=== PATIENT | male | born 1995 | race Caucasian/White ===

== ENCOUNTER 2017-10-25 21:05 | Emergency (ER) | payer MEDICAID ==
[~2017-10-25] VITALS: Ht 202167.2 cm; Wt 88.6 kg
[~2017-10-25 21:05] MED LIST: ARIP30TA7 PO; CYAN100T PO; HALO5TAB PO; OLAN10TA19 PO
[2017-10-25] MEDS ORDERED: OLAN10TA3 PO (22:44)
[2017-10-25] MEDS ORDERED: PENI500T2 PO (22:44)
[2017-10-25 23:30] LABS: URINE AMPHETAMINE SCREEN NEGATIVE (Neg); URINE BARBITUATE SCREEN NEGATIVE (Neg); URINE BENZODIAZEPINES SCREEN NEGATIVE (Neg); URINE CANNABINOID SCREEN NEGATIVE (Neg); URINE COCAINE SCREEN NEGATIVE (Neg); URINE METHADONE SCREEN NEGATIVE (Neg); URINE OPIATE SCREEN NEGATIVE (Neg); URINE PHENCYCLIDINE SCREEN NEGATIVE (Neg)
[2017-10-25 23:32] LABS: CLARITY,URINE CLEAR (Clear); COLOR,URINE YELLOW (Yellow); GLUCOSE, URINE NEGATIVE (Neg); KETONES,URINE NEGATIVE (Neg); LEUKOCYTE ESTERASE ,URINE NEGATIVE (Neg); NITRITES, URINE NEGATIVE (Neg); OCCULT BLOOD,URINE NEGATIVE (Neg); PH,URINE 5.5 (4.8-8.0); PROTEIN,URINE NEGATIVE (Neg); UROBILINOGEN,URINE 0.2 E.U/dL (0.2-1.0)
[2017-10-25 23:36] LABS: BASOPHILS % (AUTO) 0.2 % (0-1); EOSINOPHILS # (AUTO) 0.2 X10'3 (0-0.9); EOSINOPHILS % (AUTO) 1.7 % (0-6); HEMATOCRIT 37.2 % (42.0-52.0); HEMOGLOBIN 12.8 g/dl (14.0-17.9); LYMPHOCYTES # (AUTO) 1.9 X10'3 (1.1-4.8); LYMPHOCYTES % (AUTO) 18.4 % (21-51); MEAN CORPUSCULAR HEMOGLOBIN 30.2 PG (27.0-31.0); MEAN CORPUSCULAR HGB CONC 34.4 % (33.0-36.5); MEAN CORPUSCULAR VOLUME 87.7 FL (78-98); MEAN PLATELET VOLUME 7.8 FL (7.4-10.4); MONOCYTES # (AUTO) 0.5 X10'3 (0-0.9); MONOCYTES % (AUTO) 4.8 % (2-12); NEUTROPHILS # (AUTO) 7.9 X10'3 (1.8-7.7); NEUTROPHILS % (AUTO) 74.9 % (42-75); PLATELET COUNT 238 X10'3 (140-440); RED BLOOD COUNT 4.24 X10'6 (4.70-6.10); RED CELL DISTRIBUTION WIDTH 14.9 % (11.5-14.5); WHITE BLOOD COUNT 10.5 X10'3 (4.5-11.0)
[2017-10-25 23:37] LABS: UA COLLECTION TYPE VOIDED
[2017-10-26] LABS: ALANINE AMINOTRANSFERASE 38 U/L (12-78); ALBUMIN/GLOBULIN RATIO 1.3 (1.1-1.5); ALKALINE PHOSPHATASE 50 IU/L (46-116); ANION GAP 11 (8-16); ASPARTATE AMINO TRANSFERASE 15 U/L (10-37); BILIRUBIN,TOTAL 0.6 MG/DL (0.1-1.0); BLOOD UREA NITROGEN 24 MG/DL (7-18); BUN/CREATININE RATIO 24.2 (5.4-32.0); CALCIUM 9.1 MG/DL (8.5-10.1); CHLORIDE 107 MMOL/L (99-107); CREATININE 0.99 MG/DL (0.60-1.10); GLUCOSE 130 MG/DL (70-104); POTASSIUM 3.9 MMOL/L (3.5-5.1); SODIUM 144 MMOL/L (135-145); TOTAL CARBON DIOXIDE 26.5 MMOL/L (24-32); TOTAL PROTEIN 7.2 G/DL (6.4-8.2); eGFR > 90 ML/MIN
[2017-10-26 00:05] LABS: ACETAMINOPHEN < 2.0 UG/ML (10-30)
[2017-10-26 00:06] LABS: ETHANOL < 0.010 GM/DL (0.0-0.010)
[2017-10-26] MEDS: haloperidol 1mg tablet PO PRN ×2 (10:45→16:54)
[2017-10-26] MEDS: LORazepam 1 MG tablet PO PRN ×2 (10:45→16:54)
[2017-10-26] MEDS ORDERED: PENI500T2 PO (12:31)
[2017-10-26] MEDS ORDERED: nicotine 21mg patch - 24 hr TD ONE (12:40)
[2017-10-26] MEDS: penicillin V potassium 500mg tablet PO SCH (16:54)
[2017-10-27] MEDS: penicillin V potassium 500mg tablet PO SCH ×3 (00:26→16:52)
[2017-10-27] MEDS: nicotine 21mg patch - 24 hr TD SCH ×2 (08:00→12:45)
[2017-10-27] MEDS: LORazepam 1 MG tablet PO PRN ×2 (09:41→17:58)
[2017-10-27] MEDS: haloperidol 1mg tablet PO PRN ×2 (09:41→17:58)
[2017-10-27] MEDS: lactobacillus rhamnosus 10,000 MMU CELLS/CAPSULE PO SCH (20:00)
[2017-10-28] MEDS: penicillin V potassium 500mg tablet PO SCH ×2 (00:16→08:14)
[2017-10-28] MEDS: nicotine 21mg patch - 24 hr TD SCH (08:14)
[2017-10-28] MEDS: lactobacillus rhamnosus 10,000 MMU CELLS/CAPSULE PO SCH (08:14)
[2017-10-28] MEDS: LORazepam 1 MG tablet PO PRN (08:14)
[2017-10-28 09:49] VITALS: BP 110/80
== END 2017-10-28 08:30 ==
LOC: ER 21:06
DX: F20.9 Schizophrenia, unspecified (principal); R45.851 Suicidal ideations; Z60.2 Problems related to living alone; Z59.0 Homelessness; Z79.899 Other long term (current) drug therapy
CPT/HCPCS: 36415; 80053; 80305; 80320; 80329; 81003; 84443; 85025; 99285

== ENCOUNTER 2017-11-03 17:14 | Emergency (ER) | payer MEDICAID ==
[~2017-11-03] VITALS: Ht 175.3 cm; Wt 74.0 kg
[~2017-11-03 17:14] MED LIST changes: -ARIP30TA7 PO; -CYAN100T PO; -HALO5TAB PO; -OLAN10TA19 PO; +PENI500T2 PO
[2017-11-03] MEDS ORDERED: OLANZapine 2.5MG tablet PO STA (20:42)
[2017-11-03] MEDS ORDERED: LORazepam 1 MG tablet PO ONE (20:45)
[2017-11-03 20:55] LABS: URINE AMPHETAMINE SCREEN NEGATIVE (Neg); URINE BARBITUATE SCREEN NEGATIVE (Neg); URINE BENZODIAZEPINES SCREEN NEGATIVE (Neg); URINE CANNABINOID SCREEN NEGATIVE (Neg); URINE COCAINE SCREEN NEGATIVE (Neg); URINE METHADONE SCREEN NEGATIVE (Neg); URINE OPIATE SCREEN NEGATIVE (Neg); URINE PHENCYCLIDINE SCREEN NEGATIVE (Neg)
[2017-11-03 21:31] LABS: BASOPHILS # (AUTO) 0.1 X10'3 (0-0.2); BASOPHILS % (AUTO) 0.5 % (0-1); EOSINOPHILS # (AUTO) 0.2 X10'3 (0-0.9); EOSINOPHILS % (AUTO) 1.9 % (0-6); HEMATOCRIT 37.8 % (42.0-52.0); LYMPHOCYTES # (AUTO) 2.5 X10'3 (1.1-4.8); LYMPHOCYTES % (AUTO) 23.9 % (21-51); MEAN CORPUSCULAR HEMOGLOBIN 30.4 PG (27.0-31.0); MEAN CORPUSCULAR HGB CONC 34.3 % (33.0-36.5); MEAN CORPUSCULAR VOLUME 88.6 FL (78-98); MEAN PLATELET VOLUME 7.9 FL (7.4-10.4); MONOCYTES # (AUTO) 0.5 X10'3 (0-0.9); MONOCYTES % (AUTO) 5.1 % (2-12); NEUTROPHILS # (AUTO) 7.1 X10'3 (1.8-7.7); NEUTROPHILS % (AUTO) 68.6 % (42-75); PLATELET COUNT 191 X10'3 (140-440); RED BLOOD COUNT 4.27 X10'6 (4.70-6.10); RED CELL DISTRIBUTION WIDTH 13.6 % (11.5-14.5); WHITE BLOOD COUNT 10.4 X10'3 (4.5-11.0)
[2017-11-03] MEDS ORDERED: OLAN2.5T3 PO (21:48)
[2017-11-03 22:00] LABS: ALANINE AMINOTRANSFERASE 25 U/L (12-78); ALBUMIN/GLOBULIN RATIO 1.5 (1.1-1.5); ALKALINE PHOSPHATASE 53 IU/L (46-116); ANION GAP 6 (8-16); ASPARTATE AMINO TRANSFERASE 19 U/L (10-37); BILIRUBIN,TOTAL 2.3 MG/DL (0.1-1.0); BLOOD UREA NITROGEN 14 MG/DL (7-18); BUN/CREATININE RATIO 15.2 (5.4-32.0); CHLORIDE 100 MMOL/L (99-107); CREATININE 0.92 MG/DL (0.60-1.10); ETHANOL < 0.010 GM/DL (0.0-0.010); GLUCOSE 126 MG/DL (70-104); POTASSIUM 3.5 MMOL/L (3.5-5.1); SODIUM 135 MMOL/L (135-145); TOTAL CARBON DIOXIDE 29.1 MMOL/L (24-32); TOTAL PROTEIN 6.7 G/DL (6.4-8.2); eGFR > 90 ML/MIN
[2017-11-04] MEDS: OLANZapine 2.5MG tablet PO SCH ×2 (08:00→20:16)
[2017-11-04] MEDS: penicillin V potassium 500mg tablet PO SCH (16:14)
[2017-11-04] MEDS: LORazepam 1 MG tablet PO PRN (20:16)
[2017-11-05] MEDS: OLANZapine 2.5MG tablet PO SCH ×2 (10:36→20:30)
[2017-11-05] MEDS: penicillin V potassium 500mg tablet PO SCH ×3 (10:36→17:14)
[2017-11-05] MEDS: LORazepam 1 MG tablet PO PRN ×2 (10:40→17:14)
[2017-11-05 21:09] LABS: CLARITY,URINE Cloudy (Clear); COLOR,URINE Yellow (Yellow); GLUCOSE, URINE Negative (Neg); KETONES,URINE Negative (Neg); LEUKOCYTE ESTERASE ,URINE Negative (Neg); NITRITES, URINE Negative (Neg); OCCULT BLOOD,URINE Negative (Neg); PH,URINE 7.5 (4.8-8.0); PROTEIN,URINE Negative (Neg)
[2017-11-05 21:12] LABS: UA COLLECTION TYPE VOIDED
[2017-11-05 21:16] LABS: AMORPHOUS PHOSPHATES 2+; BACTERIA,URINE NONE SEEN /HPF (Neg); MUCUS STRANDS NONE SEEN /LPF (Neg); RBC,URINE NONE SEEN /HPF (0-2); SQUAMOUS EPITHELIAL CELL,UR FEW /LPF (FEW); WBC,URINE NONE SEEN /HPF (0-4)
[2017-11-06] MEDS: penicillin V potassium 500mg tablet PO SCH ×3 (01:06→17:20)
[2017-11-06] MEDS: OLANZapine 2.5MG tablet PO SCH ×2 (08:07→20:48)
[2017-11-06] MEDS: LORazepam 1 MG tablet PO PRN ×2 (08:13→14:36)
[2017-11-06] MEDS: nicotine 14mg patch - 24hr TD SCH (17:19)
[2017-11-06] MEDS: lactobacillus rhamnosus 10,000 MMU CELLS/CAPSULE PO SCH (20:48)
[2017-11-07] MEDS: penicillin V potassium 500mg tablet PO SCH ×2 (00:28→08:44)
[2017-11-07 07:40] VITALS: BP 110/70
[2017-11-07] MEDS: nicotine 14mg patch - 24hr TD SCH (08:43)
[2017-11-07] MEDS: lactobacillus rhamnosus 10,000 MMU CELLS/CAPSULE PO SCH (08:44)
[2017-11-07] MEDS: OLANZapine 2.5MG tablet PO SCH (08:44)
[2017-11-07] MEDS: LORazepam 1 MG tablet PO PRN (08:47)
== END 2017-11-07 12:33 ==
LOC: ER 17:15
DX: F20.9 Schizophrenia, unspecified (principal); Z59.0 Homelessness; Z60.2 Problems related to living alone; Z56.0 Unemployment, unspecified
CPT/HCPCS: 36415; 80053; 80305; 80320; 81001; 84443; 85025; 99285

== ENCOUNTER 2017-11-23 12:16 | Emergency (ER) | payer MEDICAID ==
[~2017-11-23] VITALS: Ht 172.7 cm; Wt 84.1 kg
[~2017-11-23 12:16] MED LIST changes: +OLAN2.5T3 PO
[2017-11-23 13:25] LABS: BASOPHILS % (AUTO) 0.1 % (0-1); EOSINOPHILS % (AUTO) 0.1 % (0-6); HEMATOCRIT 41.5 % (42.0-52.0); HEMOGLOBIN 14.5 g/dl (14.0-17.9); LYMPHOCYTES # (AUTO) 1.3 X10'3 (1.1-4.8); LYMPHOCYTES % (AUTO) 11.4 % (21-51); MEAN CORPUSCULAR HEMOGLOBIN 30.7 PG (27.0-31.0); MEAN CORPUSCULAR HGB CONC 34.9 % (33.0-36.5); MEAN CORPUSCULAR VOLUME 87.8 FL (78-98); MEAN PLATELET VOLUME 7.8 FL (7.4-10.4); MONOCYTES # (AUTO) 0.5 X10'3 (0-0.9); MONOCYTES % (AUTO) 4.6 % (2-12); NEUTROPHILS # (AUTO) 9.4 X10'3 (1.8-7.7); NEUTROPHILS % (AUTO) 83.8 % (42-75); PLATELET COUNT 232 X10'3 (140-440); RED BLOOD COUNT 4.72 X10'6 (4.70-6.10); WHITE BLOOD COUNT 11.2 X10'3 (4.5-11.0)
[2017-11-23 13:39] LABS: ALANINE AMINOTRANSFERASE 20 U/L (12-78); ALBUMIN 4.3 G/DL (3.4-5.0); ALBUMIN/GLOBULIN RATIO 1.4 (1.1-1.5); ALKALINE PHOSPHATASE 55 IU/L (46-116); ANION GAP 8 (8-16); ASPARTATE AMINO TRANSFERASE 15 U/L (10-37); BILIRUBIN,TOTAL 1.6 MG/DL (0.1-1.0); BLOOD UREA NITROGEN 18 MG/DL (7-18); BUN/CREATININE RATIO 17.5 (5.4-32.0); CALCIUM 9.1 MG/DL (8.5-10.1); CHLORIDE 105 MMOL/L (99-107); CREATININE 1.03 MG/DL (0.60-1.10); GLUCOSE 123 MG/DL (70-104); POTASSIUM 3.9 MMOL/L (3.5-5.1); SODIUM 140 MMOL/L (135-145); TOTAL CARBON DIOXIDE 26.6 MMOL/L (24-32); TOTAL PROTEIN 7.4 G/DL (6.4-8.2); eGFR 89 ML/MIN
[2017-11-23 13:48] LABS: ETHANOL < 0.010 GM/DL (0.0-0.010)
[2017-11-23] MEDS ORDERED: HALO5TAB PO (17:47)
[2017-11-23] MEDS ORDERED: BENZ1TAB8 PO (17:47)
[2017-11-23] MEDS ORDERED: OLAN20TA16 PO (17:47)
[2017-11-23 19:01] LABS: URINE AMPHETAMINE SCREEN NEGATIVE (Neg); URINE BARBITUATE SCREEN NEGATIVE (Neg); URINE BENZODIAZEPINES SCREEN POSITIVE (Neg); URINE CANNABINOID SCREEN NEGATIVE (Neg); URINE COCAINE SCREEN NEGATIVE (Neg); URINE METHADONE SCREEN NEGATIVE (Neg); URINE OPIATE SCREEN NEGATIVE (Neg); URINE PHENCYCLIDINE SCREEN NEGATIVE (Neg)
[2017-11-23] MEDS: benztropine 1mg tablet PO SCH (19:46)
[2017-11-23] MEDS: haloperidol 5mg tablet PO SCH (19:46)
[2017-11-23] MEDS: LORazepam 1 MG tablet PO PRN (19:46)
[2017-11-23] MEDS ORDERED: olanzapine 10mg tablet PO SCH (21:00)
[2017-11-24] MEDS: benztropine 1mg tablet PO SCH ×2 (09:13→21:37)
[2017-11-24] MEDS: haloperidol 5mg tablet PO SCH ×2 (09:13→21:37)
[2017-11-24] MEDS: LORazepam 1 MG tablet PO PRN ×2 (11:21→21:38)
[2017-11-24] MEDS: quetiapine 100mg tablet PO SCH (21:37)
[2017-11-25] MEDS: benztropine 1mg tablet PO SCH ×2 (08:41→20:27)
[2017-11-25] MEDS: LORazepam 1 MG tablet PO PRN ×2 (08:41→14:43)
[2017-11-25] MEDS: quetiapine 100mg tablet PO SCH ×2 (08:41→20:27)
[2017-11-25] MEDS: haloperidol 5mg tablet PO SCH ×2 (08:41→20:27)
[2017-11-26] MEDS: haloperidol 5mg tablet PO SCH ×2 (08:13→20:31)
[2017-11-26] MEDS: benztropine 1mg tablet PO SCH ×2 (08:13→20:31)
[2017-11-26] MEDS: quetiapine 100mg tablet PO SCH ×2 (08:13→20:31)
[2017-11-26] MEDS: LORazepam 1 MG tablet PO PRN ×2 (08:26→17:08)
[2017-11-27] MEDS: quetiapine 100mg tablet PO SCH (08:20)
[2017-11-27] MEDS: benztropine 1mg tablet PO SCH (08:20)
[2017-11-27] MEDS: haloperidol 5mg tablet PO SCH (08:20)
[2017-11-27] MEDS: LORazepam 1 MG tablet PO PRN (16:35)
[2017-11-27 17:20] VITALS: BP 108/69
== END 2017-11-27 19:30 | disposition home or self-care (01) ==
LOC: ER 12:16
DX: F20.9 Schizophrenia, unspecified (principal); Z56.0 Unemployment, unspecified; Z79.899 Other long term (current) drug therapy
CPT/HCPCS: 36415; 80053; 80305; 80320; 84443; 85025; 99284